=== PATIENT | male | born 1945 | race Caucasian/White ===

== ENCOUNTER 2017-04-21 12:03 | Observation (INO) | payer MEDICARE, OTHER ==
[2017-04-21] VITALS (7 sets, daily range): BP systolic 147–157; BP diastolic 81–93; PULSE 63–87; RESP 16–19; TEMP 97.9–98.2; O2SAT 96–98
[~2017-04-21] VITALS: Ht 177.8 cm; Wt 95.0 kg
[~2017-04-21 12:03] MED LIST: LOTR5CAP2
--- NOTE | 2017-04-21 12:10 | PD ---
Physical Exam Date Seen by Provider: Apr 21, 2017 Time Seen by Provider: 12:05 Narrative 71-year-old white male presents to emergency department with complaints of intermittent chest pain worse with eating and writing his bicycle. Patient states that he has a sensation that he has to burp to relieve his pain. He states the pain is a 2/10. No associated shortness of breath, nausea, vomiting or diaphoresis. Patient states that he has had a exercise stress test approximately 5 years ago which reportedly was normal. History of hypertension. No diabetes. No blood thinners. Vital signs reviewed. Pt. waiting for bed placement. [facility] Medical Record Reviewed: No Supervised Visit with PRASAD: Keagan Thompson Apr 21, 2017 12:10
--- NOTE | 2017-04-21 12:10 | PD ---
Physical Exam Date Seen by Provider: Apr 21, 2017 Time Seen by Provider: 12:05 Narrative 71-year-old white male presents to emergency department with complaints of intermittent chest pain worse with eating and writing his bicycle. Patient states that he has a sensation that he has to burp to relieve his pain. He states the pain is a 2/10. No associated shortness of breath, nausea, vomiting or diaphoresis. Patient states that he has had a exercise stress test approximately 5 years ago which reportedly was normal. History of hypertension. No diabetes. No blood thinners. Vital signs reviewed. Pt. waiting for bed placement. [facility] Medical Record Reviewed: No Supervised Visit with PRASAD: Keagan Thompson Apr 21, 2017 12:10
--- NOTE | 2017-04-21 12:10 | PD ---
Physical Exam Date Seen by Provider: Apr 21, 2017 Time Seen by Provider: 12:05 Narrative 71-year-old white male presents to emergency department with complaints of intermittent chest pain worse with eating and writing his bicycle. Patient states that he has a sensation that he has to burp to relieve his pain. He states the pain is a 2/10. No associated shortness of breath, nausea, vomiting or diaphoresis. Patient states that he has had a exercise stress test approximately 5 years ago which reportedly was normal. History of hypertension. No diabetes. No blood thinners. Vital signs reviewed. Pt. waiting for bed placement. [facility] Medical Record Reviewed: No Supervised Visit with PRASAD: Keagan Thompson Apr 21, 2017 12:10
[2017-04-21] MEDS ORDERED: BENA20TA PO (12:19)
[2017-04-21] MEDS ORDERED: FINA5TAB2 PO (12:19)
[2017-04-21] MEDS ORDERED: AMLO10TA2 PO (12:19)
--- NOTE | 2017-04-21 12:43 | PD ---
HPI Chief Complaint: GI Complaint Time Seen by Provider: 12:29 Travel History International Travel<30 days: No Contact w/Intl Traveler<30days: No Traveled to known affect area: No History of Present Illness HPI 71-year-old active male presents to the emergency department with episode 2 weeks of intermittent chest pain and complaints of indigestion after eating for the past 2 weeks. Patient reports history of hiatal hernia, and a negative stress test 5 years ago. Patient is treated for hypertension, but denies any other medical issues. Patient states he is active bicycling up to 20 miles daily, which does not seem to exacerbate his pain. Patient called his primary care physician who recommended he come in for further evaluation and treatment. Patient does state the pain occasionally wakes him up at night. He denies abdominal pain or nausea or vomiting. He denies diaphoresis. He denies changes in his bowels. He states he is not a drinker or smoker. He does still have his gallbladder and appendix. Currently the patient is pain-free. He has no known drug allergies. PFSH Past Medical History Diminished Hearing: No Hypertension: Yes Tetanus Vaccination: > 5 Years Influenza Vaccination: No Past Surgical History Abdominal Surgery: Yes (HERNIA REPAIR) Eye Surgery: Yes (ORBITAL FX SX) Social History Alcohol Use: No Tobacco Use: No Substance Use: No Allergies-Medications (Allergen,Severity, Reaction): Coded Allergies: No Known Allergies (Verified Adverse Reaction, Unknown, 04/21/17) Reported Meds & Prescriptions Reported Meds & Active Scripts Active Reported Finasteride 5 Mg Tab 5 Mg PO DAILY Do not crush. Benazepril (Benazepril HCl) 20 Mg Tab 20 Mg PO DAILY Amlodipine (Amlodipine Besylate) 10 Mg Tab 10 Mg PO DAILY Review of Systems Except as stated in HPI: all other systems reviewed are Neg General / Constitutional: No: Fever Eyes: No: Visual changes HENT: No: Headaches Cardiovascular: Positive: Chest Pain or Discomfort (see history present illness.), No: Syncope, Dyspnea on exertion Respiratory: No: Shortness of Breath Gastrointestinal: Positive: Indigestion (see history present illness), Other ( frequent belching.), No: Nausea, Vomiting, Diarrhea, Abdominal Pain, Hematemesis , Hematochezia, Constipation, Changes in Bowel Habits, Dysphagia, Loss of Appetite Genitourinary: No: Dysuria Musculoskeletal: No: Pain Skin: No Rash Neurologic: No: Weakness Psychiatric: No: Depression Endocrine: No: Polydipsia Hematologic/Lymphatic: No: Easy Bruising Physical Exam Narrative GENERAL: Patient appears in no acute distress. He is smiling and reactive. SKIN: Warm and dry. Normal color. Normal turgor. No diaphoresis. HEAD: Atraumatic. Normocephalic. EYES: Pupils equal and round. No scleral icterus. No injection or drainage. ENT: No nasal bleeding or discharge. Mucous membranes pink and moist. Thanks is clear. Airway is patent. NECK: Trachea midline. Supple and nontender. CARDIOVASCULAR: Regular rate and rhythm. No murmurs gallops or rubs appreciated. RESPIRATORY: No accessory muscle use. Clear to auscultation. Breath sounds equal bilaterally. GASTROINTESTINAL: Abdomen soft, non-tender, nondistended. Hepatic and splenic margins not palpable. No CVA tenderness. MUSCULOSKELETAL: Extremities without clubbing, cyanosis, or edema. No obvious deformities. NEUROLOGICAL: Awake and alert. No obvious cranial nerve deficits. Motor grossly within normal limits. Five out of 5 muscle strength in the arms and legs. Normal speech. PSYCHIATRIC: Appropriate mood and affect; insight and judgment normal. Data Data Last Documented VS Vital Signs Date Time Temp Pulse Resp B/P (MAP) Pulse Ox O2 Delivery O2 Flow Rate FiO2 04/21/17 12:44 72 16 152/93 (112) 97 Room Air 04/21/17 12:05 98.2 Orders Orders Electrocardiogram (04/21/17 ) Electrocardiogram (04/21/17 12:36) Ckmb (Isoenzyme) Profile (04/21/17 12:36) Complete Blood Count With Diff (04/21/17 12:36) Comprehensive Metabolic Panel (04/21/17 12:36) Magnesium (Mg) (04/21/17 12:36) Prothrombin Time / Inr (Pt) (04/21/17 12:36) Act Partial Throm Time (Ptt) (04/21/17 12:36) Troponin I (04/21/17 12:36) Lipase (04/21/17 12:36) Chest, Single Ap (04/21/17 12:36) Ecg Monitoring (04/21/17 12:36) Bilateral Bp Monitoring (04/21/17 12:36) Iv Access Insert/Monitor (04/21/17 12:36) Oximetry (04/21/17 12:36) Oxygen Administration (04/21/17 12:36) Aspirin Chew (Aspirin Chew) (04/21/17 12:45) Sodium Chloride 0.9% Flush (Ns Flush) (04/21/17 12:45) Sodium Chlorid 0.9% 500 Ml Inj (Ns 500 M (04/21/17 12:45) CKMB (04/21/17 12:45) CKMB% (04/21/17 12:45) Labs Laboratory Tests Test 04/21/17 12:45 White Blood Count 6.2 TH/MM3 Red Blood Count 4.63 MIL/MM3 Hemoglobin 14.5 GM/DL Hematocrit 42.3 % Mean Corpuscular Volume 91.3 FL Mean Corpuscular Hemoglobin 31.3 PG Mean Corpuscular Hemoglobin Concent 34.2 % Red Cell Distribution Width 13.3 % Platelet Count 225 TH/MM3 Mean Platelet Volume 8.7 FL Neutrophils (%) (Auto) 67.2 % Lymphocytes (%) (Auto) 21.5 % Monocytes (%) (Auto) 9.5 % Eosinophils (%) (Auto) 1.1 % Basophils (%) (Auto) 0.7 % Neutrophils # (Auto) 4.1 TH/MM3 Lymphocytes # (Auto) 1.3 TH/MM3 Monocytes # (Auto) 0.6 TH/MM3 Eosinophils # (Auto) 0.1 TH/MM3 Basophils # (Auto) 0.0 TH/MM3 CBC Comment DIFF FINAL Differential Comment Prothrombin Time 10.8 SEC Prothromb Time International Ratio 1.0 RATIO Activated Partial Thromboplast Time 27.0 SEC Blood Urea Nitrogen 20 MG/DL Creatinine 0.91 MG/DL Random Glucose 94 MG/DL Total Protein 7.8 GM/DL Albumin 3.9 GM/DL Calcium Level 8.9 MG/DL Magnesium Level 2.2 MG/DL Alkaline Phosphatase 92 U/L Aspartate Amino Transf (AST/SGOT) 17 U/L Alanine Aminotransferase (ALT/SGPT) 23 U/L Total Bilirubin 0.4 MG/DL Sodium Level 140 MEQ/L Potassium Level 4.1 MEQ/L Chloride Level 109 MEQ/L Carbon Dioxide Level 24.0 MEQ/L Anion Gap 7 MEQ/L Estimat Glomerular Filtration Rate 82 ML/MIN Total Creatine Kinase 177 U/L Troponin I LESS THAN 0.02 NG/ML Lipase 81 U/L [facility] Medical Decision Making Medical Screen Exam Complete: Yes Emergency Medical Condition: Yes Differential Diagnosis Chest pain. Cardiac syndrome. Gallbladder disease. Pancreatic disease. Renal colic. Narrative Course Patient is medically stable at time of exam. Labs ordered including CBC, CMP, lipase, cardiac panel, and urinalysis. Chest x-ray is ordered. EKG shows sinus rhythm with sinus arrhythmia. Nonspecific ST changes are noted. This is reviewed with Dr. Jacobson. IV access is obtained patient was given 500 mL of normal saline bolus. Patient is given 324 mg aspirin by mouth. CBC is unremarkable. CMP is unremarkable. First troponin is less than 0.02. Coagulation studies are normal. Recommended patient be admitted to the chest pain center for further evaluation and treatment as needed. Diagnosis Primary Impression: Chest pain Qualified Codes: R07.9 - Chest pain, unspecified Admitting Information Admitting Physician Requests: Observation Condition: Stable Henri Ford Apr 21, 2017 12:43
[2017-04-21] MEDS ORDERED: ASPIRIN 81 MG CHEW TAB PO ONE (12:45)
[2017-04-21] MEDS ORDERED: SODIUM CHLORID 0.9% 500 ML INJ 500 ML IV ONE (12:45)
[2017-04-21] MEDS ORDERED: SODIUM CHLORIDE 0.9% FLUSH 10 ML FLUSH IVF PRN (12:45)
[2017-04-21 13:01] LABS: AUTOMATED NEUTROPHIL # 4.1 TH/MM3 (1.8-7.7); BASOPHIL % 0.7 % (0.0-2.0); EOSINOPHIL # 0.1 TH/MM3 (0-0.4); EOSINOPHIL % 1.1 % (0.0-4.0); HEMATOCRIT 42.3 % (39.0-51.0); HEMOGLOBIN 14.5 GM/DL (13.0-17.0); LYMPH % 21.5 % (9.0-44.0); LYMPHOCYTE # 1.3 TH/MM3 (1.0-4.8); MEAN CELL VOLUME 91.3 FL (80.0-100.0); MEAN CORPUSCULAR HEMOGLOBIN 31.3 PG (27.0-34.0); MEAN CORPUSCULAR HGB CONC 34.2 % (32.0-36.0); MEAN PLATELET VOLUME 8.7 FL (7.0-11.0); MONO % 9.5 % (0.0-8.0); MONOCYTE # 0.6 TH/MM3 (0-0.9); NEUT % 67.2 % (16.0-70.0); PLATELET COUNT 225 TH/MM3 (150-450); RED BLOOD COUNT 4.63 MIL/MM3 (4.50-5.90); RED CELL DISTRIBUTION WIDTH 13.3 % (11.6-17.2); WHITE BLOOD COUNT 6.2 TH/MM3 (4.0-11.0)
--- NOTE | 2017-04-21 13:06 | RADRPT ---
EXAM DATE/TIME: 04/21/2017 13:02 [facility] COMPARISON: No previous studies available for comparison. INDICATIONS : Patient states chest tightness today. MEDICAL HISTORY : Hypertension. SURGICAL HISTORY : None. ENCOUNTER: Initial ACUITY: 1 day PAIN SCORE: 7/10 LOCATION: Bilateral chest FINDINGS: A single view of the chest demonstrates the lungs to be symmetrically aerated without evidence of mas s, infiltrate or effusion. The cardiomediastinal contours are unremarkable. Osseous structures are intact. CONCLUSION: No acute disease. Higinio Fernandes MD FACR on April 21, 2017 at 13:05 Board Certified Radiologist. This report was verified electronically.
[2017-04-21 13:10] LABS: PROTHROMBIN TIME - PATIENT 10.8 SEC (9.8-11.6)
[2017-04-21 13:17] LABS: ALBUMIN 3.9 GM/DL (3.4-5.0); ALT (GPT) 23 U/L (12-78); AST (GOT) 17 U/L (15-37); BLOOD UREA NITROGEN 20 MG/DL (7-18); CALCIUM 8.9 MG/DL (8.5-10.1); CHLORIDE 109 MEQ/L (98-107); CREATININE 0.91 MG/DL (0.60-1.30); GLOMERULAR FILTRATION RATE 82 ML/MIN (>89); GLUCOSE,RANDOM 94 MG/DL (74-106); LIPASE 81 U/L (73-393); MAGNESIUM 2.2 MG/DL (1.5-2.5); SODIUM (NA) 140 MEQ/L (136-145)
[2017-04-21 13:21] LABS: ALKALINE PHOSPHATASE 92 U/L (45-117); TOTAL BILIRUBIN ADULT 0.4 MG/DL (0.2-1.0); TOTAL PROTEIN 7.8 GM/DL (6.4-8.2); TROPONIN I LESS THAN 0.02 NG/ML (0.02-0.05)
[2017-04-21] MEDS ORDERED: NITROGLYCERIN 0.4 MG SL 25 TABS/BTL SL PRN (14:00)
[2017-04-21] MEDS ORDERED: ONDANSETRON HCL 4 MG/2 ML VIAL IV PUSH PRN (14:00)
[2017-04-21] MEDS ORDERED: ACETAMINOPHEN 500 MG CPLT PO PRN (14:00)
--- NOTE | 2017-04-21 15:27 | HHI.HP ---
HPI Primary Care Physician Weston Duffy MD Chief Complaint Chest discomfort History of Present Illness 71-year-old male with history of hypertension and BPH presents to emergency room for further evaluation chest pressure after eating. Onset 2 weeks. Location substernal. Characterized as pressure, seems to occur only after eating. No radiation of discomfort. Duration generally 1 hour. No associated symptoms of nausea, vomiting, dyspnea, or diaphoresis. Relieving factors includes belching. Endorses an active lifestyle, cycles daily 5 miles. Activity does not make discomfort worse. Denies any current chest discomfort. Denies similar pain in the past. Review of Systems General: No fatigue,weakness, fever, chills, or recent illness. Has been his general state of health. CV: As stated above. No current chest discomfort. No history of coronary artery disease. RESP: No SOB, cough, or sputum production. GI: No nausea, vomiting, or bowel changes. No feelings of ingestion, heart burn , or sour taste. No change in appetite. : History of BPH. No dysuria. EXT: No lower leg edema MS: No discomfort or change in ROM NEURO: No difficulty with balance, LOC, or motor/sensory deficits PSYCH: No anxiety, depression, or situational stress SKIN: No rashes, no concerning lesions Past Family Social History Allergies: Coded Allergies: No Known Allergies (Verified Allergy, Unknown, 04/21/17) Past Medical History Hypertension, BPH Past Surgical History Hernia surgery, orbital fracture surgery Reported Medications Active Reported Finasteride 5 Mg Tab 5 Mg PO DAILY Do not crush. Benazepril (Benazepril HCl) 20 Mg Tab 20 Mg PO DAILY Amlodipine (Amlodipine Besylate) 10 Mg Tab 10 Mg PO DAILY Active Ordered Medications Current Medications Medications (Trade) Dose Ordered Sig/Roman Route Start Time Stop Time Status Last Admin (NS Flush) 2 ml UNSCH PRN IVF 04/21/17 12:45 (NS Flush) 2 ml BID IV FLUSH 04/21/17 21:00 (Tylenol) 500 mg Q4H PRN PO 04/21/17 14:00 (Zofran Inj) 4 mg Q6H PRN IV PUSH 04/21/17 14:00 (Nitrostat Sl) 0.4 mg Q5M PRN SL 04/21/17 14:00 (Aspirin) 325 mg DAILY PO 04/22/17 09:00 Family History Noncontributory for early onset cardiovascular disease. Social History Known hypertension. No known diabetes, hyperlipidemia, or coronary artery disease. Lifelong nonsmoker. Rare alcohol use. . Endorses an active lifestyle. Cycles at least 5 miles/daily. Past cardiac testing Routine exercise stress test approximately 5 years ago reported to be unremarkable. Physical Exam Vital Signs Vital Signs Date Time Temp Pulse Resp B/P (MAP) Pulse Ox O2 Delivery O2 Flow Rate FiO2 04/21/17 15:23 63 16 157/87 (110) 96 Room Air 04/21/17 12:44 72 16 152/93 (112) 97 Room Air 04/21/17 12:41 16 98 Room Air 04/21/17 12:05 98.2 87 17 147/92 (110) 96 Room Air Physical Exam GENERAL: Alert WN, WD, NAD, pleasant, male who appears younger than stated age. HEAD: NC, AT EYES: Sclera clear, conjunctiva without injection, pupils equal and round ENT: Mucous membranes pink and moist NECK: Supple, no masses, trachea midline CV: RRR, without murmur, rub, gallop, no JVD, S1-S2 no S3-S4. RESP: Clear lungs throughout bilateral, no crackles, wheeze, rhonchi, symmetrical chest rise, nonlabored, able to speak in full sentences ABD: Soft, NT, ND, no masses, positive bowel tones EXT: Pulses +24, no dependent edema MS: Normal tone 4 extremities, nontender, no obvious deformities, full range of motion NEURO: CN II through CN XII grossly intact, motor strength 5/5 PSYCH: A+O 3, pleasant affect, appropriate speech, appropriate mood and affect , insight and judgment SKIN: Normal turgor, normal texture, no lesions, no rashes, even hair distribution Laboratory Laboratory Tests Test 04/21/17 12:45 White Blood Count 6.2 Red Blood Count 4.63 Hemoglobin 14.5 Hematocrit 42.3 Mean Corpuscular Volume 91.3 Mean Corpuscular Hemoglobin 31.3 Mean Corpuscular Hemoglobin Concent 34.2 Red Cell Distribution Width 13.3 Platelet Count 225 Mean Platelet Volume 8.7 Neutrophils (%) (Auto) 67.2 Lymphocytes (%) (Auto) 21.5 Monocytes (%) (Auto) 9.5 Eosinophils (%) (Auto) 1.1 Basophils (%) (Auto) 0.7 Neutrophils # (Auto) 4.1 Lymphocytes # (Auto) 1.3 Monocytes # (Auto) 0.6 Eosinophils # (Auto) 0.1 Basophils # (Auto) 0.0 CBC Comment DIFF FINAL Differential Comment Prothrombin Time 10.8 Prothromb Time International Ratio 1.0 Activated Partial Thromboplast Time 27.0 Blood Urea Nitrogen 20 Creatinine 0.91 Random Glucose 94 Total Protein 7.8 Albumin 3.9 Calcium Level 8.9 Magnesium Level 2.2 Alkaline Phosphatase 92 Aspartate Amino Transf (AST/SGOT) 17 Alanine Aminotransferase (ALT/SGPT) 23 Total Bilirubin 0.4 Sodium Level 140 Potassium Level 4.1 Chloride Level 109 Carbon Dioxide Level 24.0 Anion Gap 7 Estimat Glomerular Filtration Rate 82 Total Creatine Kinase 177 Creatine Kinase MB 3.5 Troponin I LESS THAN 0.02 Lipase 81 Result Diagram: 04/21/17 1245 04/21/17 1245 Imaging Last Impressions Chest X-Ray 04/21/17 1236 Signed Impressions: Service Date/Time: Friday, April 21, 2017 13:02 - CONCLUSION: No acute disease. Higinio Fernandes MD FACR Course EKG Normal sinus rhythm, left axis deviation, nonspecific T-wave changes Caprini VTE Risk Assessment Caprini VTE Risk Assessment: Mod/High Risk (score >= 2) Caprini Risk Assessment Model Point Value = 1 Point Value = 2 Point Value = 3 Point Value = 5 Age 41-60 Minor surgery BMI > 25 kg/m2 Swollen legs Varicose veins or History of unexplained or recurrent spontaneous Oral contraceptives or hormone replacement Sepsis (< 1 month) Serious lung disease, including pneumonia (< 1 month) Abnormal pulmonary function Acute myocardial infarction Congestive heart failure (< 1 month) History of inflammatory bowel disease Medical patient at bed rest Age 61-74 Arthroscopic surgery Major open surgery (> 45 min) Laparoscopic surgery (> 45 min) Malignancy Confined to bed (> 72 hours) Immobilizing plaster cast Central venous access Age >= 75 History of VTE Family history of VTE Factor V Leiden Prothrombin [id number] Lupus anticoagulant Anticardiolipin antibodies Elevated serum homocysteine Heparin-induced thrombocytopenia Other congenital or acquired thrombophilia Stroke (< 1 month) Elective arthroplasty Hip, pelvis, or leg fracture Acute spinal cord injury (< 1 month) Prophylaxis Regimen Total Risk Factor Score Risk Level Prophylaxis Regimen 0-1 Low Early ambulation 2 Moderate Order ONE of the following: *Sequential Compression Device (SCD) *Heparin 5000 units SQ BID 3-4 Higher Order ONE of the following medications: *Heparin 5000 units SQ TID *Enoxaparin/Lovenox 40 mg SQ daily (WT < 150 kg, CrCl > 30 mL/min) *Enoxaparin/Lovenox 30 mg SQ daily (WT < 150 kg, CrCl > 10-29 mL/min) *Enoxaparin/Lovenox 30 mg SQ BID (WT < 150 kg, CrCl > 30 mL/min) AND/OR *Sequential Compression Device (SCD) 5 or more Highest Order ONE of the following medications: *Heparin 5000 units SQ TID (Preferred with Epidurals) *Enoxaparin/Lovenox 40 mg SQ daily (WT < 150 kg, CrCl > 30 mL/min) *Enoxaparin/Lovenox 30 mg SQ daily (WT < 150 kg, CrCl > 10-29 mL/min) *Enoxaparin/Lovenox 30 mg SQ BID (WT < 150 kg, CrCl > 30 mL/min) AND *Sequential Compression Device (SCD) Assessment and Plan Assessment and Plan #1 Atypical chest pain-admitted to chest pain center. Seen and evaluated by Dr. Júnior Alegria. Rule out with 3 sets of EKGs, cardiac enzymes, and monitor on telemetry overnight. Proceed with exercise stress test in a.m. if ruled out overnight. If both exercise treadmill and gallbladder ultrasound unremarkable plan to discharge home with follow-up with PCP. This has been discussed with patient and whom is at bedside, both are agreeable to plan of care. #2 GERD-Protonix 40 mg by mouth #3 Hypertension-continue amlodipine and benazepril #4 BPH-continue finasteride Kyra Marrero Apr 21, 2017 15:27
[2017-04-21 16:56] LABS: TROPONIN I 0.04 NG/ML (0.02-0.05)
[2017-04-21 20:15] LABS: TROPONIN I 0.02 NG/ML (0.02-0.05)
[2017-04-21] MEDS: PANTOPRAZOLE SOD 40 MG DELAYED RELEASE TAB PO SCH (20:19)
[2017-04-21] MEDS: SODIUM CHLORIDE 0.9% FLUSH 10 ML FLUSH IV FLUSH SCH (21:00)
[2017-04-22 00:41] VITALS: PULSE 60
[2017-04-22 00:46] VITALS: BP 142/81; PULSE 63; RESP 19; TEMP 98.6; O2SAT 95
[2017-04-22 04:34] VITALS: BP_SYST 141; BP_SYST 86; BP_DIAS 86; PULSE 67; RESP 18; TEMP 98.2; O2SAT 98
[2017-04-22 07:00] VITALS: PULSE 82
[2017-04-22 07:20] VITALS: PULSE 82
[2017-04-22 08:00] VITALS: BP 124/80; PULSE 83; RESP 16; TEMP 97.7; O2SAT 96
[2017-04-22] MEDS: PANTOPRAZOLE SOD 40 MG DELAYED RELEASE TAB PO SCH (08:12)
[2017-04-22] MEDS: SODIUM CHLORIDE 0.9% FLUSH 10 ML FLUSH IV FLUSH SCH (08:12)
[2017-04-22] MEDS ORDERED: LISINOPRIL 20 MG TAB PO SCH (09:00)
[2017-04-22] MEDS ORDERED: FINASTERIDE 5 MG TAB PO SCH (09:00)
[2017-04-22] MEDS ORDERED: ASPIRIN 325 MG TAB PO SCH (09:00)
--- NOTE | 2017-04-22 09:49 | RADRPT ---
EXAM DATE/TIME: 04/22/2017 08:34 [facility] COMPARISON: No previous studies available for comparison. INDICATIONS : Right upper quadrant pain. MEDICAL HISTORY : Hypertension. Chest pain. SURGICAL HISTORY : Orbital fracture repair. Hernia repair. ENCOUNTER: Initial ACUITY: 1 day PAIN SCORE: 0/10 LOCATION: Right upper quadrant MEASUREMENTS: LIVER: 15.8 cm length COMMON DUCT: 5 mm RIGHT KIDNEY: 11.2 x 5.6 x 6.4 cm FINDINGS: LIVER: There several simple cysts in the left lobe measuring 2.5 cm, 2.5 cm, and 1.8 cm. The cyst contains internal septa. All cysts are anechoic with excellent through transmission. No biliary ductal dilat ation. No solid lesions. Hepatopedal flow seen the portal vein. COMMON DUCT: No intraluminal mass or stone visualized. GALLBLADDER: There is some mild echogenic layering material characteristic of sludge. No gallbladder wall thicken ing or shadowing stones.. PANCREAS: The visualized portions are within normal limits. RIGHT KIDNEY: No evidence of hydronephrosis, stone, or mass. CONCLUSION: 1. No gallstone seen. There is some layering sludge. 2. No intra-or extrahepatic biliary dilatation. 3. Several hepatic cysts measuring up to 2 cm.. Kodi Mcguire MD on April 22, 2017 at 9:44 Board Certified Radiologist. This report was verified electronically.
--- NOTE | 2017-04-22 10:27 | HHI.DCPOC ---
Discharge Care Plan Diagnosis: (1) Atypical chest pain (2) GERD (gastroesophageal reflux disease) (3) Hypertension Goals to Promote Your Health * To prevent worsening of your condition and complications * To maintain your health at the optimal level Directions to Meet Your Goals Take your medications as prescribed Follow your dietary instruction Follow activity as directed Keep your appointments as scheduled Take your immunizations and boosters as scheduled If your symptoms worsen call your PCP, if no PCP go to Urgent Care Center or Emergency Room Smoking is Dangerous to Your Health. Avoid second hand smoke Call the 24-hour hour crisis hotline for domestic abuse at Kyra Marrero Apr 22, 2017 10:27
--- NOTE | 2017-04-22 10:27 | HHI.DCPOC ---
Discharge Care Plan Diagnosis: (1) Atypical chest pain (2) GERD (gastroesophageal reflux disease) (3) Hypertension Goals to Promote Your Health * To prevent worsening of your condition and complications * To maintain your health at the optimal level Directions to Meet Your Goals Take your medications as prescribed Follow your dietary instruction Follow activity as directed Keep your appointments as scheduled Take your immunizations and boosters as scheduled If your symptoms worsen call your PCP, if no PCP go to Urgent Care Center or Emergency Room Smoking is Dangerous to Your Health. Avoid second hand smoke Call the 24-hour hour crisis hotline for domestic abuse at Kyra Marrero Apr 22, 2017 10:27
--- NOTE | 2017-04-22 10:27 | HHI.DCPOC ---
Discharge Care Plan Diagnosis: (1) Atypical chest pain (2) GERD (gastroesophageal reflux disease) (3) Hypertension Goals to Promote Your Health * To prevent worsening of your condition and complications * To maintain your health at the optimal level Directions to Meet Your Goals Take your medications as prescribed Follow your dietary instruction Follow activity as directed Keep your appointments as scheduled Take your immunizations and boosters as scheduled If your symptoms worsen call your PCP, if no PCP go to Urgent Care Center or Emergency Room Smoking is Dangerous to Your Health. Avoid second hand smoke Call the 24-hour hour crisis hotline for domestic abuse at Kyra Marrero Apr 22, 2017 10:27
[2017-04-22] MEDS ORDERED: OMEP20TA PO (10:30)
--- NOTE | 2017-04-22 11:19 | HHI.DS ---
Discharge Summary Admission Date Apr 21, 2017 at 13:37 Discharge Date: Apr 22, 2017 Admitting Diagnosis Chest pain Procedures Last Impressions Gall Bladder Ultrasound 04/22/17 0700 Signed Impressions: Service Date/Time: Saturday, April 22, 2017 08:34 - CONCLUSION: 1. No gallstone seen. There is some layering sludge. 2. No intra-or extrahepatic biliary dilatation. 3. Several hepatic cysts measuring up to 2 cm.. Kodi Mcguire MD Chest X-Ray 04/21/17 1236 Signed Impressions: Service Date/Time: Friday, April 21, 2017 13:02 - CONCLUSION: No acute disease. Higinio Fernandes MD FACR Brief History 71-year-old male with history of hypertension percent emergency room for further evaluation chest fullness and frequent belching after eating for 2 weeks. Admitted the chest pain center. Ruled out with 3 sets EKGs and cardiac enzymes. Complete an exercise stress test which did not suggest ischemia. Upon further discussion, patient endorses recent increase in coffee and suspects discomfort may be related. Encouraged dietary changes, follow-up with PCP, and omeprazole prescription provided. Discussed dietary changes should be instituted first and if symptoms are resolved medication for acid reflux not needed. CBC/BMP: 04/21/17 1245 04/21/17 1245 Significant Findings Laboratory Tests Test 04/21/17 12:45 04/21/17 16:00 04/21/17 19:00 Monocytes (%) (Auto) 9.5 % (0.0-8.0) Blood Urea Nitrogen 20 MG/DL (7-18) Chloride Level 109 MEQ/L (98-107) Estimat Glomerular Filtration Rate 82 ML/MIN (>89) Troponin I LESS THAN 0.02 NG/ML Imaging Last Impressions Gall Bladder Ultrasound 04/22/17 07 Signed Impressions: Service Date/Time: Saturday, April 22, 2017 08:34 - CONCLUSION: 1. No gallstone seen. There is some layering sludge. 2. No intra-or extrahepatic biliary dilatation. 3. Several hepatic cysts measuring up to 2 cm.. Kodi Mcguire MD Chest X-Ray 04/21/17 1236 Signed Impressions: Service Date/Time: Friday, April 21, 2017 13:02 - CONCLUSION: No acute disease. Higinio Fernandes MD FACR PE at Discharge GENERAL: Alert WN, WD, NAD, pleasant, male HEAD: NC, AT CV: RRR, without murmur, rub, gallop, no JVD, S1-S2 no S3-S4. RESP: Clear lungs throughout bilateral, no crackles, wheeze, rhonchi, symmetrical chest rise, nonlabored, able to speak in full sentences EXT: Pulses +24, no dependent edema MS: Normal tone 4 extremities, full range of motion NEURO:motor strength 5/5, gait WNL PSYCH: A+O 3, pleasant affect SKIN: Normal turgor, normal texture, no lesions, no rashes, brisk cap refill, even hair distribution Pt Condition on Discharge: Good Discharge Disposition: Discharge Home Discharge Instructions DIET: Follow Instructions for: Heart Healthy Diet Activities you can perform: Regular-No Restrictions Kyra Marrero Apr 22, 2017 11:19
--- NOTE | 2017-04-22 14:32 | TR ---
Date Performed: 04/22/2017 Time Performed: 09:36:53 DOCTOR: Catina Castaneda DRUG LIST: CLINICAL HISTORY: REASON FOR TEST: Chest pain REASON FOR ENDING: OBSERVATION: CONCLUSION: Silver protocol completed. Stopped sec to reaching target heart rate and leg fatigue. Maximum GM=326 Target HR Achieved=87.0% Maximum VV=877/84 Total Exercise Time=6:54. No reprod chest discomfort. Rare PACs. No st segment changes to sugg ischemia. Good exercise tolerance. Recovery quic k and unremarkable. COMMENTS:
--- NOTE | 2017-04-22 14:32 | TR ---
Date Performed: 04/22/2017 Time Performed: 09:36:53 DOCTOR: Catina Castaneda DRUG LIST: CLINICAL HISTORY: REASON FOR TEST: Chest pain REASON FOR ENDING: OBSERVATION: CONCLUSION: Silver protocol completed. Stopped sec to reaching target heart rate and leg fatigue. Maximum GZ=973 Target HR Achieved=87.0% Maximum UC=746/84 Total Exercise Time=6:54. No reprod chest discomfort. Rare PACs. No st segment changes to sugg ischemia. Good exercise tolerance. Recovery quic k and unremarkable. COMMENTS:
--- NOTE | 2017-04-22 14:32 | TR ---
Date Performed: 04/22/2017 Time Performed: 09:36:53 DOCTOR: Catina Castaneda DRUG LIST: CLINICAL HISTORY: REASON FOR TEST: Chest pain REASON FOR ENDING: OBSERVATION: CONCLUSION: Silver protocol completed. Stopped sec to reaching target heart rate and leg fatigue. Maximum WP=649 Target HR Achieved=87.0% Maximum EL=584/84 Total Exercise Time=6:54. No reprod chest discomfort. Rare PACs. No st segment changes to sugg ischemia. Good exercise tolerance. Recovery quic k and unremarkable. COMMENTS:
--- NOTE | 2017-04-22 14:37 | EKG ---
Date Performed: 04/21/2017 Time Performed: 18:48:14 PTAGE: 71 years EKG: Sinus rhythm MODERATE VOLTAGE CRITERIA FOR LVH, CONSIDER NORMAL VARIANT NONSPECIFIC T-WAVE ABNORMALITY BORDERLINE ECG Since PREVIOUS TRACING , no significant change noted PREVIOUS TRACIN04/21/2017 16.05 DOCTOR: Catina Castaneda Interpretating Date/Time 04/22/2017 14:36:28
--- NOTE | 2017-04-22 17:27 | EKG ---
Date Performed: 04/21/2017 Time Performed: 12:34:44 PTAGE: 71 years EKG: Sinus rhythm WITH MARKED SINUS ARRHYTHMIA VOLTAGE CRITERIA FOR LVH NONSPECIFIC T-WAVE ABNORMALITY ABNORMAL ECG NO PREVIOUS TRACING DOCTOR: Catina Castaneda Interpretating Date/Time 04/22/2017 17:26:05
--- NOTE | 2017-04-22 17:29 | EKG ---
Date Performed: 04/21/2017 Time Performed: 16:05:47 PTAGE: 71 years EKG: Sinus rhythm WITH FIRST DEGREE AV BLOCK MODERATE VOLTAGE CRITERIA FOR LVH, CONSIDER NORMAL VARIANT NONSPECIFIC T- WAVE ABNORMALITY ABNORMAL ECG Since PREVIOUS TRACING , no significant change noted PREVIOUS TRACIN04/21/2017 12.34 DOCTOR: Catina Castaneda Interpretating Date/Time 04/22/2017 17:27:55
== END 2017-04-22 11:16 | disposition home or self-care (01) ==
LOC: NEPE 12:03 → NEDA 13:37 → NEPHCDU 15:44
PROVIDERS: ADMIT Internal Medicine Cardiovascular Disease; ATTEND Internal Medicine Cardiovascular Disease
DX: R07.89 Other chest pain (principal); I10 Essential (primary) hypertension; K21.9 Gastro-esophageal reflux disease without esophagitis; R10.11 Right upper quadrant pain; R94.31 Abnormal electrocardiogram [ECG] [EKG]
CPT/HCPCS: 71010; 76705; 80053; 82550; 82552; 83690; 83735; 84484; 85025; 85610; 85730; 93005; 93017; 96360; 99285; G0378; J7040